=== PATIENT | female | born 1950 | race Caucasian/White ===

== ENCOUNTER 2022-03-03 03:56 | Inpatient (IN) | payer MEDICARE ==
[2022-03-03] MEDS ORDERED: cefTRIAXone\\ROCEPHIN 1 GM VIAL ONE (04:42)
[2022-03-03 04:53] LABS: ALT (SGPT) 7 U/L (8-55); AST (SGOT) 6 U/L (5-34); Albumin 2.9 g/dL (3.4-4.8); Alkaline Phosphatase 34 U/L (40-110); Anion Gap 12 mmol/L (10-20); BUN (Urea Nitrogen) 16 mg/dL (9.8-20.1); Bilirubin, Total 0.3 mg/dL (0.2-1.2); CK (CPK) 22 U/L (29-168); Calc. Creatinine Clearance 0 mL/min (70-130); Calcium 8.1 mg/dL (7.8-10.44); Carbon Dioxide 20 mmol/L (23-31); Chloride 116 mmol/L (98-107); Estimated GFR 45; Globulin 2.4 g/dL (2.4-3.5); Glucose 214 mg/dL (80-115); Lipase 23 U/L (8-78); Magnesium 1.6 mg/dL (1.6-2.6); Potassium 3.7 mmol/L (3.5-5.1); Protein, Total 5.3 g/dL (5.8-8.1); Sodium 144 mmol/L (136-145)
[2022-03-03 04:56] LABS: Hemoglobin 8.9 g/dL (12.0-15.5); Mean Corpuscular HGB CONC 30.8 g/dL (32.0-36.0); Mean Corpuscular Hemoglobin 30.2 pg (27.0-33.0); Mean Platelet Volume 9.7 fl (7.4-10.4); Platelet Count 208 10x3/uL (150-450); RBC Distribution Width 14.8 % (11.5-14.5); Red Blood Cell (RBC) Count 2.95 10x6/uL (3.90-5.03); White Blood Cell (WBC) Count 10.4 10x3/uL (3.5-10.5)
[2022-03-03 05:13] LABS: SARS-CoV-2 NAA Rapid Test Not Detected (NotDetected)
[2022-03-03] MEDS ORDERED: NOREPINEPHRINE 8 MG/250 ML-D5W 250 ML ONE (05:13)
[2022-03-03] MEDS ORDERED: Midazolam HCl 2 mg/2 ml Vial ONE (05:14)
[2022-03-03 05:16] LABS: Bilirubin Neg (Negative); Blood, Urine 50 (Negative); Clarity Cloudy (Clear); Glucose, Urine (Dipstick) 50 mg/dL (Negative); Ketone, Urine 5 mg/dL (Negative); Leukocyte 500 (Negative); Nitrite Negative (Negative); Protein, Urine (Dipstick) 30 mg/dl (Neg-Trace); Specific Gravity, Urine 1.005 (1.005-1.030); Urobilinogen Normal mg/dL (Less than 2)
[2022-03-03 05:26] LABS: Bacteria/HPF 3+ HPF (None Seen); RBC/HPF 0-3 HPF (0-3); Squamous Epithelial 0-3 HPF (0-3); WBC/HPF Greater Than 50 HPF (0-3)
[2022-03-03] MEDS ORDERED: Vancomycin 1 GM VIAL ONE (06:06)
[2022-03-03 06:37] LABS: MDiff Complete? YES
[2022-03-03 06:43] LABS: Band 12 % (5-11); Lymphocytes 14 % (21-51); Metamyelocyte 2 % (0-0); Monocytes 20 % (0-10); Neutrophil 52 % (42-75)
[2022-03-03 06:47] LABS: Hypochromia SLIGHT = 6-15 cells (100X) (0-5/hpf); Ovalocytes SLIGHT = 2-5 cells (100X) (0-1/hpf); Platelet Morphology Comment Appears Adequate; Polychromasia SLIGHT = 2-3 cells (100X) (0-2/hpf)
[2022-03-03 08:01] LABS: Lactic Acid 2.9 mmol/L (0.5-2.2)
[2022-03-03] MEDS ORDERED: Acetaminophen 325 MG TAB PO PRN (08:09)
[2022-03-03] MEDS ORDERED: Ondansetron PF 4 MG/2 ML Vial IVP PRN (08:09)
[2022-03-03] MEDS ORDERED: Dextrose 5% in Water 1,000 ML IV PRN (08:09)
[2022-03-03] MEDS ORDERED: Dextrose 50% Abboject 50 ML SYRINGE SLOW IVP PRN (08:09)
[2022-03-03] MEDS ORDERED: HumaLOG 300 UNITS/3 ML VIAL SC PRN ×2 (08:09)
[2022-03-03] MEDS ORDERED: Ondansetron ODT 4 MG TAB PO PRN (08:09)
[2022-03-03] MEDS ORDERED: NOREPINEPHRINE 8 MG/250 ML-D5W 250 ML IVPB SCH (08:15)
[2022-03-03] MEDS: Enoxaparin Sodium 40 MG/0.4 ML SYRINGE SC SCH (11:26)
[2022-03-03] MEDS ORDERED: FLU VACC QS2022-23(65YR UP)/PF 240 MCG/0.7 ML SYRINGE IM ONE (12:00)
[2022-03-03] MEDS: Lactated Ringer's 1,000 ML IV SCH (12:28)
[2022-03-03] MEDS ORDERED: Iopamidol 300 61% 100 ML VIAL FS ONE (14:20)
[2022-03-04] MEDS: Lactated Ringer's 1,000 ML IV SCH (00:47)
[2022-03-04 04:22] LABS: #Monocytes 0.9 10x3/uL (0.0-1.1); #Neutrophils 6.7 10x3/uL (1.5-8.4); %Basophils 0.3 % (0.0-2.0); %Eosinophils 0.2 % (0.0-6.0); %Lymphocytes 19.7 % (18.0-47.0); %Monocytes 9.5 % (0.0-10.0); %Neutrophils 69.7 % (40.0-75.0); Hemoglobin 9.6 g/dL (12.0-15.5); Mean Corpuscular HGB CONC 30.8 g/dL (32.0-36.0); Mean Corpuscular Hemoglobin 29.6 pg (27.0-33.0); Mean Corpuscular Volume 96.3 fl (81.6-98.3); Mean Platelet Volume 9.8 fl (7.4-10.4); Platelet Count 211 10x3/uL (150-450); RBC Distribution Width 15.1 % (11.5-14.5); Red Blood Cell (RBC) Count 3.24 10x6/uL (3.90-5.03); White Blood Cell (WBC) Count 9.6 10x3/uL (3.5-10.5)
[2022-03-04 04:37] LABS: Anion Gap 11 mmol/L (10-20); BUN (Urea Nitrogen) 16 mg/dL (9.8-20.1); Calc. Creatinine Clearance 52 mL/min (70-130); Calcium 9.3 mg/dL (7.8-10.44); Carbon Dioxide 23 mmol/L (23-31); Chloride 122 mmol/L (98-107); Estimated GFR 53; Glucose 148 mg/dL (80-115); Potassium 3.9 mmol/L (3.5-5.1)
[2022-03-04 04:43] LABS: Sodium 152 mmol/L (136-145)
[2022-03-04 05:12] VITALS: BMI 24.1
[2022-03-04] MEDS ORDERED: Sodium Chloride 0.45% 1,000 ML IV SCH (06:00)
[2022-03-04] MEDS ORDERED: cefTRIAXone\\ROCEPHIN 1 GM in Sodium Chloride 0.9% 100 ML IVPB SCH (06:00)
[2022-03-04] MEDS ORDERED: Dextrose 5% in Water 1,000 ML IV SCH (08:00)
[2022-03-04] MEDS: Enoxaparin Sodium 40 MG/0.4 ML SYRINGE SC SCH (08:20)
[2022-03-04 15:18] LABS: Sodium 142 mmol/L (136-145)
[2022-03-05] MEDS: cefTRIAXone\\ROCEPHIN 2 GM in Sodium Chloride 0.9% 100 ML IVPB SCH (05:44)
[2022-03-05] MEDS: Levothyroxine Sodium 75 MCG TAB PO SCH (05:44)
[2022-03-05 07:55] LABS: #Eosinphils 0.2 10x3/uL (0.0-0.5); #Monocytes 0.7 10x3/uL (0.0-1.1); #Neutrophils 3.5 10x3/uL (1.5-8.4); %Basophils 0.3 % (0.0-2.0); %Eosinophils 2.9 % (0.0-6.0); %Lymphocytes 34.1 % (18.0-47.0); %Monocytes 10.1 % (0.0-10.0); %Neutrophils 51.8 % (40.0-75.0); Hemoglobin 9.9 g/dL (12.0-15.5); Mean Corpuscular HGB CONC 31.3 g/dL (32.0-36.0); Mean Corpuscular Hemoglobin 29.8 pg (27.0-33.0); Mean Corpuscular Volume 95.2 fl (81.6-98.3); Mean Platelet Volume 9.7 fl (7.4-10.4); Platelet Count 233 10x3/uL (150-450); RBC Distribution Width 14.5 % (11.5-14.5); Red Blood Cell (RBC) Count 3.32 10x6/uL (3.90-5.03); White Blood Cell (WBC) Count 6.7 10x3/uL (3.5-10.5)
[2022-03-05 08:07] LABS: Anion Gap 15 mmol/L (10-20); BUN (Urea Nitrogen) 14 mg/dL (9.8-20.1); Calc. Creatinine Clearance 46 mL/min (70-130); Calcium 9.2 mg/dL (7.8-10.44); Carbon Dioxide 22 mmol/L (23-31); Chloride 118 mmol/L (98-107); Estimated GFR 46; Glucose 139 mg/dL (80-115); Potassium 4.8 mmol/L (3.5-5.1); Sodium 150 mmol/L (136-145)
[2022-03-05] MEDS ORDERED: Dextrose 5% in Water 250 ML IV SCH (10:00)
[2022-03-05] MEDS: Calcitriol 0.25 MCG CAP PO SCH (10:00)
[2022-03-05] MEDS: Enoxaparin Sodium 40 MG/0.4 ML SYRINGE SC SCH (10:02)
[2022-03-05] MEDS ORDERED: Divalproex Sodium 250 MG (DR) TAB PO SCH (12:15)
[2022-03-05 13:06] LABS: Sodium 145 mmol/L (136-145)
[2022-03-05] MEDS: Divalproex Sodium 250 MG (DR) TAB PO SCH (20:42)
[2022-03-05] MEDS: Atorvastatin Calcium 10 MG TAB PO SCH (20:42)
[2022-03-06] MEDS: Levothyroxine Sodium 75 MCG TAB PO SCH (05:20)
[2022-03-06] MEDS: cefTRIAXone\\ROCEPHIN 2 GM in Sodium Chloride 0.9% 100 ML IVPB SCH (05:20)
[2022-03-06 06:00] LABS: #Basophils 0.1 10x3/uL (0.0-0.2); #Eosinphils 0.3 10x3/uL (0.0-0.5); #Monocytes 0.5 10x3/uL (0.0-1.1); #Neutrophils 2.9 10x3/uL (1.5-8.4); %Basophils 0.8 % (0.0-2.0); %Eosinophils 4.4 % (0.0-6.0); %Monocytes 7.3 % (0.0-10.0); %Neutrophils 44.5 % (40.0-75.0); Hemoglobin 10.3 g/dL (12.0-15.5); Mean Corpuscular HGB CONC 30.7 g/dL (32.0-36.0); Mean Corpuscular Hemoglobin 29.4 pg (27.0-33.0); Mean Corpuscular Volume 95.7 fl (81.6-98.3); Mean Platelet Volume 10.1 fl (7.4-10.4); Platelet Count 269 10x3/uL (150-450); RBC Distribution Width 14.6 % (11.5-14.5); White Blood Cell (WBC) Count 6.4 10x3/uL (3.5-10.5)
[2022-03-06 06:06] LABS: Anion Gap 16 mmol/L (10-20); BUN (Urea Nitrogen) 15 mg/dL (9.8-20.1); Calc. Creatinine Clearance 45 mL/min (70-130); Calcium 9.2 mg/dL (7.8-10.44); Carbon Dioxide 21 mmol/L (23-31); Chloride 116 mmol/L (98-107); Estimated GFR 45; Glucose 137 mg/dL (80-115); Sodium 149 mmol/L (136-145)
[2022-03-06] MEDS: Enoxaparin Sodium 40 MG/0.4 ML SYRINGE SC SCH (08:08)
[2022-03-06] MEDS: Calcitriol 0.25 MCG CAP PO SCH (08:09)
[2022-03-06] MEDS: Dextrose 5% in Water 500 ML IV SCH ×2 (08:11→14:05)
[2022-03-06] MEDS: Divalproex Sodium 250 MG (DR) TAB PO SCH ×2 (08:23→20:38)
[2022-03-06 14:54] LABS: Sodium 142 mmol/L (136-145)
[2022-03-06] MEDS: Atorvastatin Calcium 10 MG TAB PO SCH (20:38)
[2022-03-07 04:59] LABS: Hemoglobin 9.5 g/dL (12.0-15.5); Mean Corpuscular HGB CONC 30.7 g/dL (32.0-36.0); Mean Corpuscular Hemoglobin 29.1 pg (27.0-33.0); Mean Corpuscular Volume 94.5 fl (81.6-98.3); Mean Platelet Volume 9.8 fl (7.4-10.4); Platelet Count 288 10x3/uL (150-450); RBC Distribution Width 14.3 % (11.5-14.5); Red Blood Cell (RBC) Count 3.27 10x6/uL (3.90-5.03)
[2022-03-07 05:09] LABS: Anion Gap 15 mmol/L (10-20); BUN (Urea Nitrogen) 14 mg/dL (9.8-20.1); Calc. Creatinine Clearance 51 mL/min (70-130); Calcium 9.5 mg/dL (7.8-10.44); Carbon Dioxide 20 mmol/L (23-31); Chloride 114 mmol/L (98-107); Estimated GFR 52; Glucose 135 mg/dL (80-115); Potassium 3.9 mmol/L (3.5-5.1); Sodium 145 mmol/L (136-145)
[2022-03-07 05:35] LABS: MDiff Complete? YES; Platelet Morphology Comment Appears Adequate
[2022-03-07 05:37] LABS: Band 4 % (5-11); Eosinophils 6 % (0-10); Lymphocytes 32 % (21-51); Monocytes 10 % (0-10); Neutrophil 46 % (42-75); Reactive Lymphocytes 2 % (0-10)
[2022-03-07] MEDS: Levothyroxine Sodium 75 MCG TAB PO SCH (05:50)
[2022-03-07 08:08] VITALS: BP 118/53; TEMP 98.2
[2022-03-07] MEDS ORDERED: Cefdinir 300 MG CAP PO SCH (09:00)
[2022-03-07] MEDS: Enoxaparin Sodium 40 MG/0.4 ML SYRINGE SC SCH (09:31)
[2022-03-07] MEDS: Divalproex Sodium 250 MG (DR) TAB PO SCH (09:31)
[2022-03-07] MEDS: Calcitriol 0.25 MCG CAP PO SCH (09:31)
== END 2022-03-07 11:02 | disposition home or self-care (01) | DRG 871 ==
LOC: CSHERS 03:56 → CSHICU 10:35 → CSHTELE 03-04 13:55
PROVIDERS: ADMIT Internal Medicine; ATTEND Internal Medicine
PROC: 06HY33Z Insertion of Infusion Device into Lower Vein, Percutaneous Approach (ICD-10-PCS; principal; 2022-03-03)
PROC: 3E033XZ Introduction of Vasopressor into Peripheral Vein, Percutaneous Approach (ICD-10-PCS; 2022-03-03)
PROC: 3E03329 Introduction of Other Anti-infective into Peripheral Vein, Percutaneous Approach (ICD-10-PCS; 2022-03-03)
PROC: 0T9B70Z Drainage of Bladder with Drainage Device, Via Natural or Artificial Opening (ICD-10-PCS; 2022-03-03)
DX: A41.89 Other specified sepsis (principal); R65.21 Severe sepsis with septic shock; E87.0 Hyperosmolality and hypernatremia; N39.0 Urinary tract infection, site not specified; I48.91 Unspecified atrial fibrillation; E11.9 Type 2 diabetes mellitus without complications; B96.1 Klebsiella pneumoniae [K. pneumoniae] as the cause of diseases classified elsewhere; F03.90 Unspecified dementia, unspecified severity, without behavioral disturbance, psychotic disturbance, mood disturbance, and anxiety; E78.5 Hyperlipidemia, unspecified; F31.9 Bipolar disorder, unspecified; I10 Essential (primary) hypertension; E03.9 Hypothyroidism, unspecified; Z20.822 Contact with and (suspected) exposure to COVID-19; Z91.040 Latex allergy status; Z91.048 Other nonmedicinal substance allergy status; Z79.84 Long term (current) use of oral hypoglycemic drugs; Z79.890 Hormone replacement therapy; Z79.899 Other long term (current) drug therapy; Z90.49 Acquired absence of other specified parts of digestive tract; Z98.890 Other specified postprocedural states
CPT/HCPCS: 36415; 36416; 36556; 51702; 70450; 71045; 74177; 80048; 80053; 81003; 81015; 82550; 83605; 83690; 83735; 83880; 84484; 85025; 87040; 87077; 87086; 87186; 93005; 94760; 96374; 96375; J0696; J1650; J1815; J2250; J3370; J3490; J7070; J7120; Q9967

== ENCOUNTER 2023-04-12 19:40 | Emergency (ER) | payer MEDICARE ==
[2023-04-12 21:18] LABS: Bilirubin Neg (Negative); Blood, Urine Negative (Negative); Clarity Clear (Clear); Glucose, Urine (Dipstick) 250 mg/dL (Negative); Ketone, Urine 5 mg/dL (Negative); Leukocyte Negative (Negative); Nitrite Negative (Negative); Protein, Urine (Dipstick) 30 mg/dl (Neg-Trace); Specific Gravity, Urine 1.005 (1.005-1.030); Urobilinogen Normal mg/dL (Less than 2)
[2023-04-12 21:18] LABS: #Basophils 0.1 10x3/uL (0.0-0.2); #Eosinphils 0.1 10x3/uL (0.0-0.5); #Monocytes 0.6 10x3/uL (0.0-1.1); #Neutrophils 3.8 10x3/uL (1.5-8.4); %Basophils 0.7 % (0.0-2.0); %Eosinophils 1.6 % (0.0-6.0); %Lymphocytes 31.8 % (18.0-47.0); %Monocytes 8.6 % (0.0-10.0); %Neutrophils 56.6 % (40.0-75.0); Hematocrit 37.3 % (34.9-44.5); Hemoglobin 11.5 g/dL (12.0-15.5); Mean Corpuscular HGB CONC 30.8 g/dL (32.0-36.0); Mean Corpuscular Hemoglobin 27.8 pg (27.0-33.0); Mean Corpuscular Volume 90.3 fl (81.6-98.3); Platelet Count 377 10x3/uL (150-450); Red Blood Cell (RBC) Count 4.13 10x6/uL (3.90-5.03); White Blood Cell (WBC) Count 6.8 10x3/uL (3.5-10.5)
[2023-04-12 21:28] LABS: ALT (SGPT) 16 U/L (8-55); AST (SGOT) 17 U/L (5-34); Albumin 4.2 g/dL (3.4-4.8); Alkaline Phosphatase 50 U/L (40-110); Anion Gap 14 mmol/L (10-20); BUN (Urea Nitrogen) 32 mg/dL (9.8-20.1); Bilirubin, Total 0.3 mg/dL (0.2-1.2); Calc. Creatinine Clearance 0 mL/min (70-130); Calcium 10.6 mg/dL (7.8-10.44); Carbon Dioxide 25 mmol/L (23-31); Chloride 106 mmol/L (98-107); Estimated GFR 39; Globulin 3.2 g/dL (2.4-3.5); Glucose 114 mg/dL (83-110); Potassium 3.9 mmol/L (3.5-5.1); Protein, Total 7.4 g/dL (5.8-8.1); Sodium 141 mmol/L (136-145)
[2023-04-12 21:31] LABS: Bacteria/HPF Rare-Few HPF (None Seen); CAUTI Indications for Culture Pelvic or flank pain; RBC/HPF 0-3 HPF (0-3); Squamous Epithelial 0-3 HPF (0-3); WBC/HPF 0-3 HPF (0-3)
[2023-04-12 21:33] LABS: Urine Culture Reflex No No
[2023-04-12 22:58] LABS: Amphetamine Not Detected (NotDetected); Barbiturates Screen Not Detected (NotDetected); Benzodiazepine Screen Not Detected (NotDetected); Cocaine Metabolite Screen Not Detected (NotDetected); Methadone Not Detected (NotDetected); Methamphetamine Not Detected (NotDetected); Opiate Screen Not Detected (NotDetected); Oxycodone Screen Not Detected (NotDetected); Phencyclidine (PCP) Not Detected (NotDetected); THC/Cannabinoid Screen Not Detected (NotDetected); Tricyclic Screen Not Detected (NotDetected)
[2023-04-12] MEDS ORDERED: OLANZapine 5 MG TAB PO SCH (23:00)
[2023-04-12 23:01] LABS: Acetaminophen Less than 10 mcg/mL (10.0-30.0); Alcohol Less than 10.0 mg/dL (Less than 10); Salicylate Less than 8.0 mg/dL (15.0-30.0)
[2023-04-13] MEDS ORDERED: Lorazepam 1 MG TAB ONE ×2 (01:37→03:48)
[2023-04-13] MEDS ORDERED: Acetaminophen 500 MG TAB ONE (03:48)
== END 2023-04-13 13:24 ==
LOC: CSHERS 19:40
DX: F31.11 Bipolar disorder, current episode manic without psychotic features, mild (principal); E03.9 Hypothyroidism, unspecified; E11.9 Type 2 diabetes mellitus without complications; I10 Essential (primary) hypertension; Z79.899 Other long term (current) drug therapy; Z79.890 Hormone replacement therapy
CPT/HCPCS: 36415; 80053; 80306; 80307; 81001; 84443; 85025; 99285

== ENCOUNTER 2023-05-04 09:13 | Emergency (ER) | payer MEDICARE ==
[2023-05-04 10:32] LABS: ALT (SGPT) 11 U/L (8-55); AST (SGOT) 18 U/L (5-34); Albumin 4.3 g/dL (3.4-4.8); Alkaline Phosphatase 55 U/L (40-110); Anion Gap 19 mmol/L (10-20); BUN (Urea Nitrogen) 26 mg/dL (9.8-20.1); Bilirubin, Total 0.4 mg/dL (0.2-1.2); Calc. Creatinine Clearance 0 mL/min (70-130); Calcium 10.4 mg/dL (7.8-10.44); Carbon Dioxide 20 mmol/L (23-31); Chloride 105 mmol/L (98-107); Estimated GFR 38; Globulin 3.3 g/dL (2.4-3.5); Glucose 131 mg/dL (83-110); Potassium 3.9 mmol/L (3.5-5.1); Protein, Total 7.6 g/dL (5.8-8.1); Sodium 140 mmol/L (136-145)
[2023-05-04 10:33] LABS: Acetaminophen Less than 10 mcg/mL (10.0-30.0); Alcohol Less than 10.0 mg/dL (Less than 10); Magnesium 1.8 mg/dL (1.6-2.6); Salicylate Less than 8.0 mg/dL (15.0-30.0)
[2023-05-04 10:51] LABS: Bilirubin Neg (Negative); Blood, Urine Negative (Negative); Clarity Clear (Clear); Glucose, Urine (Dipstick) >=1000 mg/dL (Negative); Ketone, Urine 5 mg/dL (Negative); Leukocyte Negative (Negative); Nitrite Negative (Negative); Protein, Urine (Dipstick) Negative (Neg-Trace); Urobilinogen Normal mg/dL (Less than 2)
[2023-05-04 11:02] LABS: Amphetamine Not Detected (NotDetected); Barbiturates Screen Not Detected (NotDetected); Benzodiazepine Screen Not Detected (NotDetected); Cocaine Metabolite Screen Not Detected (NotDetected); Methadone Not Detected (NotDetected); Methamphetamine Not Detected (NotDetected); Opiate Screen Not Detected (NotDetected); Oxycodone Screen Not Detected (NotDetected); Phencyclidine (PCP) Not Detected (NotDetected); THC/Cannabinoid Screen Not Detected (NotDetected); Tricyclic Screen Detected (NotDetected)
[2023-05-04 11:03] LABS: Bacteria/HPF None Seen HPF (None Seen); CAUTI Indications for Culture Alt mental st,lethar; RBC/HPF None Seen HPF (0-3); Squamous Epithelial 0-3 HPF (0-3)
[2023-05-04 11:04] LABS: Urine Culture Reflex No No
[2023-05-04 11:06] LABS: #Eosinphils 0.2 10x3/uL (0.0-0.5); #Monocytes 0.9 10x3/uL (0.0-1.1); #Neutrophils 4.2 10x3/uL (1.5-8.4); %Basophils 0.6 % (0.0-2.0); %Lymphocytes 20.7 % (18.0-47.0); %Monocytes 12.7 % (0.0-10.0); %Neutrophils 60.8 % (40.0-75.0); Hematocrit 35.9 % (34.9-44.5); Hemoglobin 11.4 g/dL (12.0-15.5); Mean Corpuscular HGB CONC 31.8 g/dL (32.0-36.0); Mean Corpuscular Hemoglobin 28.3 pg (27.0-33.0); Mean Corpuscular Volume 89.1 fl (81.6-98.3); Mean Platelet Volume 10.2 fl (7.4-10.4); Platelet Count 271 10x3/uL (150-450); RBC Distribution Width 14.6 % (11.5-14.5); Red Blood Cell (RBC) Count 4.03 10x6/uL (3.90-5.03); White Blood Cell (WBC) Count 6.9 10x3/uL (3.5-10.5)
== END 2023-05-04 18:00 ==
LOC: CSHERS 09:13
DX: F23 Brief psychotic disorder (principal); F31.9 Bipolar disorder, unspecified; E11.9 Type 2 diabetes mellitus without complications; I10 Essential (primary) hypertension
CPT/HCPCS: 36415; 51701; 70450; 80053; 80306; 80307; 81001; 83735; 84443; 85025; 93005

== ENCOUNTER 2023-05-21 19:27 | Observation (INO) | payer MEDICARE ==
[2023-05-21 20:01] LABS: #Basophils 0.1 10x3/uL (0.0-0.2); #Eosinphils 0.2 10x3/uL (0.0-0.5); #Monocytes 0.8 10x3/uL (0.0-1.1); #Neutrophils 4.7 10x3/uL (1.5-8.4); %Basophils 0.6 % (0.0-2.0); %Lymphocytes 27.5 % (18.0-47.0); %Monocytes 9.5 % (0.0-10.0); Hematocrit 38.7 % (34.9-44.5); Mean Corpuscular Hemoglobin 26.8 pg (27.0-33.0); Mean Corpuscular Volume 86.6 fl (81.6-98.3); Mean Platelet Volume 9.9 fl (7.4-10.4); Platelet Count 279 10x3/uL (150-450); RBC Distribution Width 15.3 % (11.5-14.5); Red Blood Cell (RBC) Count 4.47 10x6/uL (3.90-5.03)
[2023-05-21] MEDS ORDERED: Ondansetron PF 4 MG/2 ML Vial ONE (20:05)
[2023-05-21 20:11] LABS: ALT (SGPT) 11 U/L (8-55); AST (SGOT) 15 U/L (5-34); Albumin 3.9 g/dL (3.4-4.8); Alkaline Phosphatase 56 U/L (40-110); Anion Gap 16 mmol/L (10-20); BUN (Urea Nitrogen) 28 mg/dL (9.8-20.1); Bilirubin, Total 0.4 mg/dL (0.2-1.2); Calc. Creatinine Clearance 0 mL/min (70-130); Carbon Dioxide 21 mmol/L (23-31); Chloride 110 mmol/L (98-107); Estimated GFR 34; Globulin 2.6 g/dL (2.4-3.5); Glucose 113 mg/dL (83-110); Lipase 39 U/L (8-78); Potassium 4.1 mmol/L (3.5-5.1); Protein, Total 6.5 g/dL (5.8-8.1); Sodium 143 mmol/L (136-145)
[2023-05-21 20:14] LABS: Troponin I Less than 0.010 ng/mL (< 0.028)
[2023-05-21 20:16] LABS: Bilirubin Neg (Negative); Blood, Urine Negative (Negative); Clarity Clear (Clear); Glucose, Urine (Dipstick) 250 mg/dL (Negative); Ketone, Urine 15 mg/dL (Negative); Leukocyte 100 (Negative); Nitrite Negative (Negative); Protein, Urine (Dipstick) Negative (Neg-Trace); Urobilinogen Normal mg/dL (Less than 2); pH, Urine 6.5 (5.0-9.0)
[2023-05-21 20:42] LABS: Bacteria/HPF 4+ HPF (None Seen); CAUTI Indications for Culture Alt mental st,lethar; Mucous/LPF 1+ LPF (<2+); RBC/HPF None Seen HPF (0-3); Squamous Epithelial 0-3 HPF (0-3); Urine Culture Reflex Yes Yes
[2023-05-21] MEDS ORDERED: cefTRIAXone (ROCEPHIN) 2 GM VIAL ONE (22:24)
[2023-05-22] MEDS ORDERED: QUEtiapine 25 MG TAB PO SCH ×2 (01:15→21:00)
[2023-05-22] MEDS: QUEtiapine 25 MG TAB PO SCH (01:44)
[2023-05-22] MEDS: Divalproex Sodium 250 MG ER.TAB PO SCH ×2 (01:44→11:10)
[2023-05-22 03:02] VITALS: BMI 29.1
[2023-05-22] MEDS: metFORMIN 500 MG TAB PO SCH (11:07)
[2023-05-22] MEDS: Empagliflozin 10 MG TAB PO SCH (11:07)
[2023-05-22] MEDS: FLU VACC QS2023(65UP)/MF59C/PF 60 MCG/0.5 ML SYRINGE IM ONE (11:08)
[2023-05-22] MEDS: risperiDONE 1 MG TAB PO SCH (11:09)
[2023-05-22] MEDS: OLANZapine 5 MG TAB PO SCH (11:09)
[2023-05-22 12:25] VITALS: BP 129/98
[2023-05-22] MEDS: Enoxaparin 40 MG (0.4 mL) SYRINGE SC SCH (16:39)
[2023-05-22 17:27] VITALS: TEMP 97.7
[2023-05-22] MEDS ORDERED: cefTRIAXone\\ROCEPHIN 1 GM in Sodium Chloride 0.9% 100 ML IVPB SCH (22:00)
== END 2023-05-22 18:32 ==
LOC: CSHERS 19:27 → CSHTELE 23:33
PROVIDERS: ADMIT Family Medicine; ATTEND Hospitalist
DX: F31.12 Bipolar disorder, current episode manic without psychotic features, moderate (principal); N39.0 Urinary tract infection, site not specified; E11.22 Type 2 diabetes mellitus with diabetic chronic kidney disease; I12.9 Hypertensive chronic kidney disease with stage 1 through stage 4 chronic kidney disease, or unspecified chronic kidney disease; N18.32 Chronic kidney disease, stage 3b; E78.5 Hyperlipidemia, unspecified; E03.9 Hypothyroidism, unspecified; Z90.49 Acquired absence of other specified parts of digestive tract; Z79.890 Hormone replacement therapy; Z79.899 Other long term (current) drug therapy; Z79.84 Long term (current) use of oral hypoglycemic drugs; Z91.040 Latex allergy status; Z86.79 Personal history of other diseases of the circulatory system
CPT/HCPCS: 36415; 36416; 80053; 81001; 83690; 84443; 84484; 85025; 87086; 93005; 96361; 96365; 96375; G0378; J0696; J2405